=== PATIENT | female | born 1990 | race Asian ===

== ENCOUNTER → 2024-12-06 | Outpatient (CLI) | payer BC, SELFPAY ==
--- NOTE | 2024-12-06 09:02 | RAD_ITS ---
PROCEDURE: KNEE 4 OR MORE VIEWS REASON FOR EXAM: Knee pain. TECHNIQUE: 4 view(s) of the left knee COMPARISON: None. RAD/Knee 4 or More Views IMPRESSION: No left knee joint effusion is seen. No significant arthritic process is seen. No joint narrowing is noted. Satisfactory osseous alignment is identified. No fracture site is identified. Reading Location: [id number]
--- NOTE | 2024-12-06 09:02 | RAD_ITS ---
PROCEDURE: L/S SPINE MIN 4 VIEWS REASON FOR EXAM: Low back pain. TECHNIQUE: Four view lumbar spine series including bilateral oblique views COMPARISON: None. RAD/L/S Spine Min 4 Views IMPRESSION: No significant degenerative change or disc narrowing is noted. No evidence of spondylolysis or spondylolisthesis. No significant arthritic process is seen. Sacroiliac joints appear symmetric and within the normal range. No significant abnormality is identified. Reading Location: [id number]
== END | disposition home or self-care (01) ==
LOC: RAD 08:52
PROVIDERS: PCP Nurse Practitioner Family; Referring Provider Nurse Practitioner Family; Visit Provider Nurse Practitioner Family
DX: M25.562 Pain in left knee (principal); M54.50 Low back pain, unspecified
CPT/HCPCS: 72110; 73564

== ENCOUNTER → 2024-12-10 | Outpatient (CLI) | payer BC, SELFPAY ==
--- NOTE | 2024-12-10 11:06 | BI_ITS ---
PROCEDURE: SCRN MAMM (CAD)W/SUNSHINE BILAT REASON FOR EXAM: F, Age 34 y/o , no family history. Baseline examination. COMPARISON: Baseline TECHNIQUE: Bilateral screening digital breast tomosynthesis with C-View and 2D FFDM. Computer aided detection. FINDINGS: The breasts are extremely dense which lowers the sensitivity of mammography. No focal abnormality is seen. BI/SCRN MAMM (CAD)W/SUNSHINE BILAT IMPRESSION: BI-RADS 2: BENIGN. RECOMMEND ANNUAL MAMMOGRAPHIC SCREENING. Routine annual follow-up recommended. The patient will be notified of the results by letter. Reading Location: [id number]
== END | disposition home or self-care (01) ==
LOC: OPBI 11:04
PROVIDERS: PCP Nurse Practitioner Family; Referring Provider Nurse Practitioner Family; Visit Provider Nurse Practitioner Family
DX: Z12.31 Encounter for screening mammogram for malignant neoplasm of breast (principal)
CPT/HCPCS: 77063; 77067